=== PATIENT | female | born 1940 | race Caucasian/White ===

== ENCOUNTER 2021-09-06 13:30 | Emergency (ER) | payer OTHER ==
[2021-09-06 14:20] VITALS: BP 115/78; PULSE 89; TEMP 98; BMI 40.7
[2021-09-06] MEDS ORDERED: ACETAMINOPHEN 325 MG TABLET (FP) PO ONE (14:53)
[2021-09-06] MEDS ORDERED: ACETAMINOPHEN 325 MG TABLET (FP) ONE (15:09)
[2021-09-06 16:59] LABS: INR 3.37 (0.83-1.09); PROTHROMBIN TIME (PATIENT) 39.2 SEC (9.7-13.0)
== END 2021-09-06 17:37 | disposition home or self-care (01) ==
LOC: JER 13:30
DX: S09.90XA Unspecified injury of head, initial encounter (principal); W01.198A Fall on same level from slipping, tripping and stumbling with subsequent striking against other object, initial encounter
CPT/HCPCS: 36415; 70450-TC; 70486-TC; 72125-TC; 73090-TC-LT-FY; 73110-TC-LT-FY; 73130-TC-LT-FY; 73562-TC-LT-FY; 73562-TC-RT-FY; 85610; 99285-25